=== PATIENT | male | born 1955 | race Caucasian/White ===

== ENCOUNTER 2016-08-28 08:50 | Day surgery (SDC) | payer OTHER ==
--- NOTE | ~2016-08-28 | OP ---
Record Of Operation [facility] [address] [place]. [address] NAME: JÚNIOR QUICK : 59 STATUS : [facility]#: [id number] AGE: 61 ADM/REG DATE : 08/28/16 MR#: [id number] REPORT SERV DATE: 08/28/16 DICTATED BY: HIRAL GARCES III DATE: 08/28/16 REPORT STATUS : Draft TRANSCRIBED BY: MODAlok DATE: 08/28/16 DATE OF PROCEDURE: 08/28/2016 PREOPERATIVE DIAGNOSIS: Left incarcerated scrotal/inguinal hernia with the postoperative diagnosis being different since the hernia was incarcerated and we felt it was reducible preoperatively, but we had to remove and lyse some adhesions to reduce the hernia at the time of laparoscopic surgery. The procedure was an inguinal hernia repair, repairing an indirect left inguinal hernia, which was scrotal and incarcerated with omental tissues stuck in the hernia itself and this was accompanied by a cord lipoma excision and a left inguinal block using 30 mL of 0.5% Marcaine with epinephrine to block the ilioinguinal and iliopubic nerves for postop pain supplementation. This was performed in a laparoscopic procedure and mesh was used; two forms of mesh, a Vicryl mesh was used as a plug and Ultrapro advanced mesh used as the repairing mesh from lot #[id number], expiration date 04/11/2018, the size was 6.8 x 15 cm, #[id number]. The mesh was customized to fit and the Vicryl mesh customized to fill the space. ANESTHESIA: The procedure was performed on general anesthesia supplemented with the ilioinguinal and iliopubic block for postop supplementation. ESTIMATED BLOOD LOSS: 5 mL. SPECIMEN: Cord lipoma. No cultures were done. DESCRIPTION OF PROCEDURE: The patient was prepped and draped in routine fashion. Adequate general anesthesia with the patient in the supine position. The scrotal sac and genitalia as well as the entire lower abdomen prepped in the operative field. After this had been done, a time-out was held and there was no dissension amongst the staff about the side and procedure to be performed. The abdomen was approached through an infraumbilical incision and an open trocar technique utilized to place a 12 mm balloon port in the peritoneal cavity under direct visualization. The balloon was inflated, and the abdominal cavity insufflated to 15 mmHg pressure with carbon dioxide gas. The 0 degree angle operative telescope then placed in the peritoneal cavity. Internal exam performed showing a relatively normal- appearing liver and upper abdominal viscera were inspected and the gallbladder appeared to be somewhat contracted, but not acutely disease. The duodenum and pyloric area were unremarkable. Small bowel was also unremarkable, but was with some gaseous filling. The area of the lower abdomen was then inspected and the right inguinal area showed a small dimple affect, but no true hernia seen. The left inguinal area showed a significant left inguinal hernia that was with significant omental content that was stuck in the apex that required with minimal lysis of adhesions to separate. The hernia was then reduced with pressure from the outside as an extraoral push and gentle tug from the inside. The very deep indirect hernia was seen and this hernia were inverted taking the apex and pulling it out. The surrounding tissues were , pulling the spermatic cord to the side, and identifying the vas deferens, and manipulating it medially away from the dissection plane. The sac itself was divided and excised, and the medial aspect of the spermatic cord Record Of [place] [id number] [facility] [place]. [address] NAME: JÚNIOR QUICK : 59 STATUS : [facility]#: [id number] AGE: 61 ADM/REG DATE : 08/28/16 MR#: [id number] REPORT SERV DATE: 08/28/16 DICTATED BY: HIRAL GARCES III DATE: 08/28/16 REPORT STATUS : Draft TRANSCRIBED BY: MODL DATE: 08/28/16 reflected medially by blunt and sharp dissection. After this was done, the retroperitoneal tissues were inspected and cleared of surrounding tissue adhesions and Lucio's ligament identified and skeletonized. The spermatic cord was skeletonized as were the inferior epigastric artery and vein. Spermatic cord skeletonized removing some cord lipomatous tissue and submitting it to Pathology. After this was completed, the apex of the dissected herniated space was filled with several pieces of Vicryl mesh to form an effective plug into the space filling the space. After this had been done, the actual repair was done with the Ultrapro mesh, which was customized, cutting the corners off and making a slit down the middle with a haines hole opening for the passage of the spermatic cord and vessels from the inferior epigastric artery and vein. The tails were placed laterally and the main portion of the hernia mesh was secured to the inguinal ligament with Pro Tacker as well as securing it to the Lucio's ligament that was visualized medially. This anchored the mesh down and we were able to secure the mesh to the shelving portion of the conjoined tendon. Along the border of the internal oblique muscle with the Pro Tacker with multiple jade. The tails of the mesh that were lateral were then overlapped and secured together with the stapling device. The edge of the anterior surface of the mesh was secured to the conjoined tendinous portion of the internal oblique fascia with the Pro Tacker along the way. This completely covered the area of the defect with significant overlap. There were no jade placed inferiorly to avoid any injury to the vessels. After this was done, good coverage of the defect was appreciated and the re- peritonealization was carried out using the Pro Tacker to bring the previous hernia sac and retroperitoneal tissues up overlapping the mesh, effectively isolating the mesh from the peritoneal cavity and its structures. The re-peritonealization having been completed, the internal exam was again repeated and the area of the inguinal repair noted to have no bleeding or abnormalities with good viability in the location of the sigmoid colon. The small bowel was again noted to be gaseously distended in several places, but not abnormally so, and the remainder of the procedure was concluded. The trocars that were used were two 5 mm trocars placed at the mid axillary line at the level of the umbilicus that were both placed under direct visualization and the 12 mm balloon port. The two 5 mm trocars were removed under video observation and the balloon port removed. The fascial defect in the umbilicus was closed with [id number] sutures of 0 Vicryl. The 5 mm trocar sites were closed at the subcu level with 3-0 Vicryl and the skin closed with Dermabond. The skin of the umbilical incision was also approximated with 3-0 Vicryl in the subcu and Dermabond. Band-Aids were applied and the procedure concluded. GINGER/CRYSTAL Hiral Garces III, M.D. / [id number] CC: Hiral Garces III, M.D. Record Of Operation [address] [address] NAME: JÚNIOR QUICK : 59 STATUS : [facility] PAT#: [id number] AGE: 61 ADM/REG DATE : 08/28/16 MR#: [id number] REPORT SERV DATE: 08/28/16 DICTATED BY: HIRAL GARCES III DATE: 08/28/16 REPORT STATUS : Draft TRANSCRIBED BY: MODL DATE: 08/28/16 Suzanna Hood N.P.
[~2016-08-28 08:50] MED LIST: *DENIES; [UNRECOGNIZED DRUG - OTHER]
[2016-08-28 09:18] LABS: BASOPHILS 0.3 %; BASOPHILS ABSOLUTE 0.03 10/3/uL (0.0-0.16); EOSINOPHILS 0.6 %; EOSINOPHILS ABSOLUTE 0.06 10/3/uL (0.0-0.53); HEMATOCRIT 48.2 % (40.0-51.0); HEMOGLOBIN 16.5 g/dL (13.6-17.8); IMMATURE GRANULOCYTES 0.3 %; IMMATURE GRANULOCYTES ABSOLUTE 0.03 10/3/uL (0.0-0.11); LYMPHOCYTES ABSOLUTE 2.05 10/3/uL (0.67-4.30); MEAN CORPUS HGB CONC 34.2 g/dL (32.0-36.0); MEAN CORPUSCULAR HEMOGLOB 30.3 pg (26.0-34.0); MEAN CORPUSCULAR VOLUME 88.4 fL (80-100); MEAN PLATELET VOLUME 8.5 fL (9.2-13.0); MONOCYTES 8.8 %; MONOCYTES ABSOLUTE 0.86 10/3/uL (0.21-1.20); NEUTROPHILS ABSOLUTE 6.72 10/3/uL (2.02-8.40); PLATELET COUNT 222 10/3/uL (150-400); RBC DISTRIBUTION WIDTH 13.9 % (12.0-16.0); RED CELL COUNT 5.45 10/6/uL (4.7-6.1); WHITE BLOOD CELLS 9.8 10/3/uL (4.5-10.5)
[2016-08-28 09:19] LABS: MANUAL DIFF NO %
[2016-08-28 09:26] LABS: INTERNATIONAL NORMAL RATI 1.1 UNITS (-); PARTIAL THROMBO TIME 30.5 SEC (22.5-37.2); PROTIME (NOT ORD) 14.1 SEC (12.0-14.5)
[2016-08-28 09:35] LABS: A/G RATIO 0.8 (0.7-1.9); ALBUMIN 3.6 G/DL (3.5-5.0); ALKALINE PHOSPHATASE 57 U/L (45-117); BUN (BLOOD UREA NITROGEN) 7 MG/DL (6-23); CALCIUM, SERUM 9.5 MG/DL (8.5-10.4); CHLORIDE, SERUM 105 MMOL/L (96-112); CO2 (CARBON DIOXIDE) 28 MMOL/L (24-34); CREATININE 0.78 MG/DL (0.70-1.30); GFR AFRICAN AMERICAN 115 ML/MIN (>=60); GFR NON AFRICAN AMERICAN 99 ML/MIN (>=60); GLOBULIN 4.5 G/DL (2.5-4.1); GLUCOSE, SERUM 108 MG/DL (60-99); POTASSIUM, SERUM 4.3 MMOL/L (3.5-5.3); SGOT(AST) 20 U/L (5-40); SGPT(ALT) 30 U/L (5-65); SODIUM, SERUM 139 MMOL/L (135-148); TOTAL BILIRUBIN 0.6 MG/DL (0-1.2); TOTAL PROTEIN 8.1 G/DL (6.0-8.5)
== END 2016-08-28 15:14 | disposition home or self-care (01) ==
LOC: SDC 08:50
PROVIDERS: Surgery
PROC: 0YU64JZ Supplement Left Inguinal Region with Synthetic Substitute, Percutaneous Endoscopic Approach (ICD-10-PCS; principal; 2016-08-28 09:45)
DX: K40.30 Unilateral inguinal hernia, with obstruction, without gangrene, not specified as recurrent (principal); D17.6 Benign lipomatous neoplasm of spermatic cord; I10 Essential (primary) hypertension; F32.9 Major depressive disorder, single episode, unspecified; J44.9 Chronic obstructive pulmonary disease, unspecified; F17.210 Nicotine dependence, cigarettes, uncomplicated; M19.90 Unspecified osteoarthritis, unspecified site; Z87.01 Personal history of pneumonia (recurrent); Z90.89 Acquired absence of other organs; Z96.1 Presence of intraocular lens; Z98.41 Cataract extraction status, right eye; Z98.42 Cataract extraction status, left eye; Z98.890 Other specified postprocedural states
CPT/HCPCS: 80053; 85025; 85610; 85730; 88304; 93005; A9270-GY; C1781; J0690; J1170; J1885; J2250; J2270; J2370; J2405; J2710; J3010